=== PATIENT | female | born 1995 | race Caucasian/White ===

== ENCOUNTER 2021-08-20 12:14 | Emergency (ER) | payer OTHER, BC, SELFPAY ==
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
[2021-08-20 12:47] VITALS: BP 148/96; PULSE 119; RESP 20; TEMP 36.6; O2SAT 100
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
[2021-08-20 13:01] VITALS: BP 148/96; PULSE 138; RESP 20; TEMP 36.6; O2SAT 100
[2021-08-20 14:00] VITALS: PULSE 118
== END 2021-08-20 14:11 | disposition home or self-care (01) ==
PROVIDERS: Emergency Provider Nurse Practitioner; PCP Family Medicine
DX: S22.42XA Multiple fractures of ribs, left side, initial encounter for closed fracture (principal); V49.40XA Driver injured in collision with unspecified motor vehicles in traffic accident, initial encounter; J45.909 Unspecified asthma, uncomplicated; Q79.60 Ehlers-Danlos syndrome, unspecified
CPT/HCPCS: 71111; 72170; 73030; 99204; G0463